=== PATIENT | female | born 1995 | race Caucasian/White ===

== ENCOUNTER 2019-10-02 11:01 | Outpatient (CLI) | payer OTHER, SELFPAY ==
[2019-10-02 18:01] LABS: Beta HCG Quantitative < 2.39 mIU/ML
[2019-10-02 18:10] LABS: Thyroid Stimulating Hormone Reflex 0.949 uIU/mL (0.465-4.68)
== END 2019-10-02 11:02 | disposition home or self-care (01) ==
PROVIDERS: PCP Advanced Practice Midwife; Visit Provider Advanced Practice Midwife
DX: N93.8 Other specified abnormal uterine and vaginal bleeding (principal)
CPT/HCPCS: 36415; 84443; 84702